=== PATIENT | male | born 1995 | race Caucasian/White ===

== ENCOUNTER 2018-06-27 20:12 | Inpatient (IN) | payer OTHER ==
[2018-06-27] MEDS ORDERED: NACL 0.9% 3 ML SYG IV (21:30)
[2018-06-27] MEDS ORDERED: ONDANSETRON 4 MG INJ IV (21:30)
[2018-06-27] MEDS ORDERED: BISACODYL (EC) 5 MG TAB PO (21:30)
[2018-06-27] MEDS ORDERED: DOCUSATE SODIUM 100 MG CAP PO (21:30)
[2018-06-27] MEDS: SOD CHLORIDE 0.9% 1,000 ML IV (22:57)
[2018-06-28] MEDS: LORAZEPAM 2 MG INJ IV ×3 (03:16→14:52)
[2018-06-28 05:40] LABS: ADD MAN DIFF? NO
[2018-06-28 05:49] LABS: BASOPHIL # 0.1 10^3/ul (0.0-0.1); BASOPHILS % 1.1 % (0.0-2.0); EOSINOPHILS # 0.3 10^3/ul (0.0-0.5); EOSINOPHILS % 3.6 % (0.0-7.0); HEMATOCRIT 42.4 % (42.0-52.0); HEMOGLOBIN 14.2 g/dl (14.0-18.0); LYMPHOCYTES # 1.9 10^3/ul (0.8-2.9); LYMPHOCYTES % 26.8 % (15.0-51.0); MEAN CORPUSCULAR HEMOGLOBIN 30.1 pg (29.0-33.0); MEAN CORPUSCULAR HGB CONC 33.5 g/dl (32.0-37.0); MEAN CORPUSCULAR VOLUME 89.8 fl (82.0-101.0); MEAN PLATELET VOLUME 10.1 fl (7.4-10.4); MONOCYTE # 0.7 10^3/ul (0.3-0.9); MONOCYTES % 9.2 % (0.0-11.0); NEUTROPHIL # 4.2 10^3/ul (1.6-7.5); PLATELET COUNT 284 10^3/UL (140-415); RED BLOOD COUNT 4.72 10^6/ul (4.70-6.10); RED CELL DISTRIBUTION WIDTH 12.3 % (11.5-14.5)
[2018-06-28 05:49] LABS: WHITE BLOOD COUNT 7.2 10^3/ul (4.8-10.8)
[2018-06-28] MEDS ORDERED: PENDING SANTYL ORDER FOR WOUND CARE XX (06:00)
[2018-06-28 06:09] LABS: ALANINE AMINOTRANSFERASE 20 IU/L (13-69); ALBUMIN 3.5 g/dl (3.3-4.9); ALBUMIN/GLOBULIN RATIO 1.29; ALKALINE PHOSPHATASE 77 IU/L (42-121); ANION GAP 10 (8-16); ASPARTATE AMINO TRANSFERASE 18 IU/L (15-46); BILIRUBIN,INDIRECT 0.3 mg/dl (0-1.1); BILIRUBIN,TOTAL 0.3 mg/dl (0.2-1.3); BLOOD UREA NITROGEN 7 mg/dl (7-20); CARBON DIOXIDE 28 mmol/L (21-31); CHLORIDE 110 mmol/L (97-110); CREATININE 0.56 mg/dl (0.61-1.24); GLUCOSE 94 mg/dl (70-220); POTASSIUM 3.9 mmol/L (3.5-5.1); SODIUM 144 mmol/L (135-144); TOTAL PROTEIN 6.2 g/dl (6.1-8.1)
[2018-06-28 07:02] LABS: HEMOGLOBIN A1C 4.9 % (0-5.9)
[2018-06-28 10:10] LABS: PHOSPHORUS 4.2 mg/dl (2.5-4.9)
[2018-06-28 10:10] LABS: CREATINE KINASE 24 IU/L (23-200); MAGNESIUM 1.9 mg/dl (1.7-2.5)
[2018-06-28 10:14] LABS: CK INDEX 1.1; CK-MB 0.27 ng/ml (0.0-2.4); TROPONIN-I < 0.012 ng/ml (0.000-0.120)
[2018-06-28 11:44] LABS: CREATINE KINASE 24 IU/L (23-200)
[2018-06-28 11:55] LABS: CK-MB 0.23 ng/ml (0.0-2.4); TROPONIN-I < 0.012 ng/ml (0.000-0.120)
[2018-06-28 12:03] LABS: FREE THYROXINE INDEX (Calc) 3.93 ug/ml (0.65-3.89); T3 UPTAKE 36.4 % (23.5-40.5); T4 (THYROXINE) 10.8 ug/dl (5.5-11.0)
[2018-06-28 12:15] LABS: ADD UMIC NO; UR ASCORBIC ACID NEGATIVE (NEGATIVE); UR BILIRUBIN (Dip) NEGATIVE (NEGATIVE); UR BLOOD (Dip) NEGATIVE (NEGATIVE); UR CLARITY CLEAR (CLEAR); UR COLOR YELLOW (YELLOW); UR GLUCOSE (Dip) NEGATIVE (NEGATIVE); UR KETONES (Dip) NEGATIVE (NEGATIVE); UR LEUKOCYTE ESTERASE (Dip) NEGATIVE Leu/ul (NEGATIVE); UR NITRITE (Dip) NEGATIVE (NEGATIVE); UR SPECIFIC GRAVITY (Dip) 1.013 (1.003-1.030); UR TOTAL PROTEIN (Dip) NEGATIVE (NEGATIVE); UR UROBILINOGEN (Dip) 1+ mg/dL (NEGATIVE)
[2018-06-28 12:48] LABS: AMPHETAMINE/METHAMPHETAMINE Negative (NEGATIVE); BARBITURATES Negative (NEGATIVE); BENZODIAZEPINES Negative (NEGATIVE); CANNABINOIDS Negative (NEGATIVE); COCAINE Negative (NEGATIVE); OPIATES Negative (NEGATIVE)
[2018-06-28 17:26] LABS: CREATINE KINASE 24 IU/L (23-200)
[2018-06-28 17:27] LABS: ADD UMIC NO; UR ASCORBIC ACID NEGATIVE (NEGATIVE); UR BILIRUBIN (Dip) NEGATIVE (NEGATIVE); UR BLOOD (Dip) NEGATIVE (NEGATIVE); UR CLARITY CLEAR (CLEAR); UR COLOR COLORLESS (YELLOW); UR GLUCOSE (Dip) NEGATIVE (NEGATIVE); UR KETONES (Dip) NEGATIVE (NEGATIVE); UR LEUKOCYTE ESTERASE (Dip) NEGATIVE Leu/ul (NEGATIVE); UR NITRITE (Dip) NEGATIVE (NEGATIVE); UR SPECIFIC GRAVITY (Dip) 1.003 (1.003-1.030); UR TOTAL PROTEIN (Dip) NEGATIVE (NEGATIVE); UR UROBILINOGEN (Dip) NEGATIVE (NEGATIVE)
[2018-06-28 17:39] LABS: CK INDEX 0.9; CK-MB < 0.22 ng/ml (0.0-2.4); TROPONIN-I < 0.012 ng/ml (0.000-0.120)
[2018-06-28] MEDS: IBUPROFEN 400 MG TAB PO (18:49)
[2018-06-28] MEDS ORDERED: COLLAGENASE 5 GM (UD JAR) TOP (20:00)
[2018-06-28] MEDS: DIVALPROEX (EC) 250 MG TAB PO (20:10)
[2018-06-28] MEDS: RISPERIDONE 0.25 MG TAB PO (20:11)
[2018-06-28] MEDS: COLLAGENASE 5 GM (UD JAR) TOP (20:11)
[2018-06-29 05:43] LABS: ADD MAN DIFF? NO; BASOPHIL # 0.1 10^3/ul (0.0-0.1); BASOPHILS % 0.9 % (0.0-2.0); EOSINOPHILS # 0.3 10^3/ul (0.0-0.5); EOSINOPHILS % 3.5 % (0.0-7.0); HEMATOCRIT 47.1 % (42.0-52.0); HEMOGLOBIN 15.9 g/dl (14.0-18.0); LYMPHOCYTES # 2.2 10^3/ul (0.8-2.9); LYMPHOCYTES % 25.4 % (15.0-51.0); MEAN CORPUSCULAR HEMOGLOBIN 30.2 pg (29.0-33.0); MEAN CORPUSCULAR HGB CONC 33.8 g/dl (32.0-37.0); MEAN CORPUSCULAR VOLUME 89.5 fl (82.0-101.0); MEAN PLATELET VOLUME 10.1 fl (7.4-10.4); MONOCYTE # 0.8 10^3/ul (0.3-0.9); MONOCYTES % 8.9 % (0.0-11.0); NEUTROPHIL # 5.2 10^3/ul (1.6-7.5); NEUTROPHILS % 60.9 % (39.0-77.0); PLATELET COUNT 297 10^3/UL (140-415); RED BLOOD COUNT 5.26 10^6/ul (4.70-6.10); RED CELL DISTRIBUTION WIDTH 12.1 % (11.5-14.5)
[2018-06-29 05:43] LABS: WHITE BLOOD COUNT 8.5 10^3/ul (4.8-10.8)
[2018-06-29] MEDS: IBUPROFEN 400 MG TAB PO ×3 (06:04→11:54)
[2018-06-29] MEDS: LORAZEPAM 2 MG INJ IV ×3 (06:05→18:14)
[2018-06-29 06:13] LABS: ALANINE AMINOTRANSFERASE 19 IU/L (13-69); ALBUMIN 4.1 g/dl (3.3-4.9); ALBUMIN/GLOBULIN RATIO 1.36; ALKALINE PHOSPHATASE 72 IU/L (42-121); ANION GAP 15 (8-16); ASPARTATE AMINO TRANSFERASE 23 IU/L (15-46); BILIRUBIN,INDIRECT 0.5 mg/dl (0-1.1); BILIRUBIN,TOTAL 0.5 mg/dl (0.2-1.3); BLOOD UREA NITROGEN 8 mg/dl (7-20); CALCIUM 10.2 mg/dl (8.4-10.2); CARBON DIOXIDE 26 mmol/L (21-31); CHLORIDE 104 mmol/L (97-110); CREATININE 0.41 mg/dl (0.61-1.24); GLUCOSE 81 mg/dl (70-220); POTASSIUM 4.4 mmol/L (3.5-5.1); SODIUM 141 mmol/L (135-144); TOTAL PROTEIN 7.1 g/dl (6.1-8.1)
[2018-06-29] MEDS: RISPERIDONE 0.25 MG TAB PO ×2 (08:17→20:54)
[2018-06-29] MEDS: COLLAGENASE 5 GM (UD JAR) TOP (08:17)
[2018-06-29] MEDS: DIVALPROEX (EC) 250 MG TAB PO ×2 (08:17→20:54)
[2018-06-30] MEDS: LORAZEPAM 2 MG INJ IV ×4 (03:37→22:26)
[2018-06-30 06:51] LABS: ANION GAP 12 (8-16); BLOOD UREA NITROGEN 9 mg/dl (7-20); CALCIUM 9.5 mg/dl (8.4-10.2); CARBON DIOXIDE 30 mmol/L (21-31); CHLORIDE 104 mmol/L (97-110); CREATININE 0.48 mg/dl (0.61-1.24); GLUCOSE 85 mg/dl (70-220); POTASSIUM 4.2 mmol/L (3.5-5.1); SODIUM 142 mmol/L (135-144)
[2018-06-30 06:51] LABS: VALPROATE 12 ug/ml (50-100)
[2018-06-30 07:00] LABS: FREE T4 (FREE THYROXINE) 1.77 ng/dl (0.79-2.35)
[2018-06-30 07:14] LABS: TRIIODOTHYRONINE 1.51 ng/ml (0.97-1.69)
[2018-06-30] MEDS: DIVALPROEX (EC) 250 MG TAB PO ×2 (09:00→21:00)
[2018-06-30] MEDS: RISPERIDONE 0.25 MG TAB PO ×2 (09:00→21:00)
[2018-06-30] MEDS: COLLAGENASE 5 GM (UD JAR) TOP (09:25)
[2018-06-30] MEDS: SOD CHLORIDE 0.9% 1,000 ML IV (12:13)
[2018-06-30 15:33] LABS: D-DIMER < 220.00 ng/ml (<460)
[2018-07-01] MEDS: LORAZEPAM 2 MG INJ IV ×4 (04:13→20:43)
[2018-07-01] MEDS: DIVALPROEX (EC) 250 MG TAB PO ×2 (08:38→20:13)
[2018-07-01] MEDS: RISPERIDONE 0.25 MG TAB PO ×2 (08:39→20:14)
[2018-07-01] MEDS: COLLAGENASE 5 GM (UD JAR) TOP (09:24)
[2018-07-01] MEDS: ACETAMINOPHEN 325 MG TAB PO (13:33)
[2018-07-02] MEDS: LORAZEPAM 2 MG INJ IV ×3 (06:31→18:42)
[2018-07-02] MEDS: RISPERIDONE 0.25 MG TAB PO ×2 (08:57→20:16)
[2018-07-02] MEDS: DIVALPROEX (EC) 250 MG TAB PO ×2 (08:57→20:16)
[2018-07-02] MEDS: COLLAGENASE 5 GM (UD JAR) TOP (09:53)
[2018-07-02] MEDS: ACETAMINOPHEN 325 MG TAB PO (19:52)
[2018-07-03] MEDS: LORAZEPAM 2 MG INJ IV ×4 (01:16→19:58)
[2018-07-03] MEDS: DIVALPROEX (EC) 250 MG TAB PO ×4 (09:00→20:04)
[2018-07-03] MEDS: RISPERIDONE 0.25 MG TAB PO (09:00)
[2018-07-03] MEDS: ACETAMINOPHEN 325 MG TAB PO (09:17)
[2018-07-03] MEDS: COLLAGENASE 5 GM (UD JAR) TOP (09:18)
[2018-07-03] MEDS: NAPROXEN 250 MG TAB PO ×2 (14:23→19:59)
[2018-07-03 14:29] LABS: ANION GAP 12 (8-16); BLOOD UREA NITROGEN 6 mg/dl (7-20); CARBON DIOXIDE 28 mmol/L (21-31); CHLORIDE 91 mmol/L (97-110); CREATININE 0.49 mg/dl (0.61-1.24); GLUCOSE 96 mg/dl (70-220); MAGNESIUM 1.6 mg/dl (1.7-2.5); PHOSPHORUS 3.2 mg/dl (2.5-4.9); POTASSIUM 3.6 mmol/L (3.5-5.1); SODIUM 127 mmol/L (135-144)
[2018-07-04] MEDS: LORAZEPAM 2 MG INJ IV ×3 (06:25→19:02)
[2018-07-04] MEDS: NAPROXEN 250 MG TAB PO ×3 (08:07→22:05)
[2018-07-04] MEDS: ACETAMINOPHEN 325 MG TAB PO ×2 (08:08→15:11)
[2018-07-04] MEDS: COLLAGENASE 5 GM (UD JAR) TOP (08:09)
[2018-07-04] MEDS: DIVALPROEX (EC) 250 MG TAB PO ×2 (12:24→22:04)
[2018-07-04] MEDS: MAGNESIUM SULFATE 2 GM/50 ML 50 ML IVPB (15:11)
[2018-07-04] MEDS: BUPIVACAINE 0.25%/EPI (SDV) 10 ML INJ INJ (19:00)
[2018-07-04] MEDS: DOCUSATE SODIUM 100 MG CAP PO (22:04)
[2018-07-04] MEDS: RISPERIDONE 0.25 MG TAB PO (22:05)
[2018-07-05] MEDS: LORAZEPAM 2 MG INJ IV ×3 (02:39→15:46)
[2018-07-05 05:31] LABS: ANION GAP 12 (8-16); BLOOD UREA NITROGEN 10 mg/dl (7-20); CALCIUM 9.4 mg/dl (8.4-10.2); CARBON DIOXIDE 30 mmol/L (21-31); CHLORIDE 104 mmol/L (97-110); CREATININE 0.53 mg/dl (0.61-1.24); GLUCOSE 86 mg/dl (70-220); MAGNESIUM 2.1 mg/dl (1.7-2.5); POTASSIUM 4.1 mmol/L (3.5-5.1); SODIUM 142 mmol/L (135-144)
[2018-07-05] MEDS: COLLAGENASE 5 GM (UD JAR) TOP (08:07)
[2018-07-05] MEDS: NAPROXEN 250 MG TAB PO ×2 (08:07→12:13)
[2018-07-05] MEDS: DOCUSATE SODIUM 100 MG CAP PO (08:07)
[2018-07-05] MEDS: RISPERIDONE 0.25 MG TAB PO (08:07)
[2018-07-05] MEDS: DIVALPROEX (EC) 250 MG TAB PO (08:13)
[2018-07-05] MEDS: morphine 2 MG INJ IV (12:00)
[2018-07-05] MEDS: ACETAMINOPHEN 325 MG TAB PO (14:43)
[2018-07-05] MEDS: BETAMET NA PHOS/AC(6 MG/ML) 5ML INJ INJ ×2 (15:49→16:23)
[2018-07-05] MEDS: BUPIVACAINE 0.25%/EPI (SDV) 10 ML INJ INJ (16:24)
== END 2018-07-05 19:55 | disposition home health service (06) | DRG 308 ==
LOC: 2NE 07-04 22:25 → 6WM 20:12
DX: R00.0 Tachycardia, unspecified (principal); L89.013 Pressure ulcer of right elbow, stage 3; E86.0 Dehydration; F25.0 Schizoaffective disorder, bipolar type; F29 Unspecified psychosis not due to a substance or known physiological condition; R53.81 Other malaise; F90.9 Attention-deficit hyperactivity disorder, unspecified type; Z74.01 Bed confinement status; R94.6 Abnormal results of thyroid function studies
CPT/HCPCS: 73060-50; 73080-RT; 73090; 73200; 80048; 80053; 80164; 80307; 81003; 82550; 82553; 83036; 83735; 84100; 84436; 84439; 84443; 84479; 84480; 84484; 85025; 85378; 93005; 93306; 93970; 97110; 97162; 97165; 97530; 97535